=== PATIENT | female | born 1955 | race Two or more races ===

== ENCOUNTER 2018-02-13 20:43 | Inpatient (IN) | payer OTHER ==
[~2018-02-13] VITALS: Ht 162.6 cm; Wt 87.5 kg
[2018-02-13 22:03] LABS: Basophils # (auto) 0 uL; Basophils % (auto) 0.5 % (0.0-2.0); Eosinophils # (auto) 0.1 uL; Eosinophils % (auto) 2.1 % (0.0-7.0); Hematocrit 43.2 % (36.0-46.0); Hemoglobin 14.5 g/dL (12.2-16.2); Lymphocytes # (auto) 1.5 uL; Lymphocytes % (auto) 22.5 % (10.0-50.0); Mean Corpuscular Hemoglobin 30.9 pg (28.0-32.0); Mean Corpuscular Hgb Conc. 33.6 g/dL (32.0-36.0); Monocytes # (auto) 0.8 uL; Monocytes % (auto) 11.2 % (0.0-12.0); Neutrophils # (auto) 4.3 uL; Neutrophils % (auto) 63.7 % (37.0-80.0); Nucleated Red Blood Cells % 0.1 %; Platelet Count (auto) 168 10^3/uL (140-450); Red Cell Distribution Width 13.8 % (11.8-14.3); White Blood Cell 6.7 10^3/uL (4.4-10.8)
[2018-02-13 22:07] LABS: Alanine Aminotransferase 31 U/L (13-56); Albumin 3.5 g/dL (3.4-5.0); Anion Gap 11 (5-15); Aspartate Aminotransferase 22 U/L (15-37); BUN/Creatinine Ratio 21.6; Blood Alcohol < 3.0 mg/dL (0-5); Blood Urea Nitrogen 21 mg/dL (7-18); Calcium 8.5 mg/dL (8.5-10.1); Carbon Dioxide 23 mmol/L (21-32); Chloride 106 mmol/L (98-107); GFR African American 74 mL/min; GFR Non-African American 61 mL/min; Glucose 98 mg/dL (74-106); Potassium 3.6 mmol/L (3.5-5.1); Sodium 140 mmol/L (136-145)
[2018-02-13 22:12] LABS: Alkaline Phosphatase 102 U/L (45-117); Bilirubin, Total 0.4 mg/dL (0.2-1.0); Total Protein 7.2 g/dL (6.4-8.2)
[2018-02-13 23:38] LABS: Alcohol, Urine < 3.0 mg/dL (0-5); Amphetamine Screen, Urine NEGATIVE (NEGATIVE); Barbiturate Scree,Urine NEGATIVE (NEGATIVE); Benzodiazephine Screen, Urine NEGATIVE (NEGATIVE); Cannabinoid Screen, Urine NEGATIVE (NEGATIVE); Cocaine Screen, Urine NEGATIVE (NEGATIVE); Opiate Scree,Urine NEGATIVE (NEGATIVE); Phencyclidine Screen, Urine NEGATIVE (NEGATIVE)
[2018-02-13 23:44] LABS: Urine Bacteria MANY /hpf (None Seen); Urine Blood Negative /uL (Negative); Urine Mucus FEW (None Seen); Urine Specific Gravity 1.015 (1.001-1.035); Urine WBC 29 /hpf (0 - 5)
[2018-02-14] MEDS: SODIUM CHLORIDE 0.9% 1,000 ML IV SCH ×2 (10:07→22:37)
[2018-02-14] MEDS ORDERED: NITROGLYCERIN 0.4 MG SL TAB SL PRN (10:15)
[2018-02-14] MEDS ORDERED: MORPHINE SULFATE 10 MG/ML INJ 1ML SDV IV PRN ×2 (10:15)
[2018-02-14] MEDS ORDERED: LORazepam 0.5 MG TAB PO PRN (10:15)
[2018-02-14] MEDS ORDERED: LACTULOSE 20Gm/30ML SOLN PO PRN (10:15)
[2018-02-14] MEDS ORDERED: TEMAZEPAM 15 MG CAP PO PRN (10:15)
[2018-02-14] MEDS ORDERED: ACETAMINOPHEN 500 MG TAB PO PRN (10:15)
[2018-02-14] MEDS ORDERED: PROMETHAZINE HCL 25 MG/ML 1ML IV PRN (10:15)
[2018-02-14] MEDS ORDERED: LABETALOL HCL 5 MG/ML ML 20ML VIAL IV PRN (10:15)
[2018-02-14] MEDS ORDERED: cefTRIAXone 1GM/50ML D5W 50 ML IV ONE (10:15)
[2018-02-14] MEDS ORDERED: SERT-274 PO (10:34)
[2018-02-14] MEDS ORDERED: FURO20TA PO (10:34)
[2018-02-14] MEDS ORDERED: OMEP20TA PO (10:34)
[2018-02-14] MEDS ORDERED: ACET120S38 PR (10:34)
[2018-02-14] MEDS ORDERED: LOSA-46 PO (10:34)
[2018-02-14] MEDS ORDERED: POTA10TA79 PO (10:34)
[2018-02-14] MEDS ORDERED: SIMV-8 PO (10:34)
[2018-02-14] MEDS ORDERED: ENOXAPARIN SOD 40 MG/0.4 ML SYRINGE SC ONE (10:45)
[2018-02-14 10:53] LABS: INR 0.97 (0.9-1.15); Partial Thromboplastin Time 27.7 sec (23.78-33.04); Prothrombin Time 10.4 sec (9.27-12.13)
[2018-02-14 11:12] LABS: Folate (Folic Acid) > 24.00 ng/mL (5.38-24)
[2018-02-14] MEDS ORDERED: IOHEXOL 350 MG/ML 100ML IJ ONE (14:57)
[2018-02-14 14:58] LABS: Cholesterol 184 mg/dL (< 200)
[2018-02-14 15:00] LABS: HDL Cholesterol 46 mg/dL (40-59); LDL Cholesterol 138 mg/dL (< 100); Triglycerides 132 mg/dL (< 150)
--- NOTE | 2018-02-14 17:50 | NUR ---
Telemetry admit from ER [facility] admitted to Telemetry unit after SBAR received. Patient oriented to Katia Yeh, RN primary RN, unit, room, bed, and unit policies regarding patient care and visiting hours. Patient now on continuous telemetry monitoring, tele box # [id number] and telemetry reading on arrival to unit is SB 44 bpm. Patient placed on bedside oxygen, weighed by bedscale and encouraged to call if they need something. All questions and concerns addressed, patient verbalized understanding.
[2018-02-14] MEDS: HYDROcodone-ACET 5/325MG TAB PO PRN (18:42)
--- NOTE | 2018-02-14 20:00 | NUR ---
Opening Shift Note Assumed care of patient, awake and alert. No S/S of distress/SOB or pain. Instructed on POC and to call for assist PRN, will continue to monitor for changes Q1hr and PRN.
[2018-02-14] MEDS: ATORVASTATIN 20 MG TAB PO SCH (21:28)
[2018-02-14 22:00] VITALS: BP 90/56
[2018-02-15 05:00] VITALS: BP 128/73
[2018-02-15] MEDS: HYDROcodone-ACET 5/325MG TAB PO PRN ×2 (05:43→21:31)
--- NOTE | 2018-02-15 07:30 | NUR ---
Opening Shift Note Assumed care of patient at this time. Patient is awake, alert, and oriented x4. Patient states there is some pain to her left arm at this time. Patient shows no signs or symptoms of shortness of breath or distress. Instructed patient on the plan of care for today and to call for assistance as needed. Bed is locked and lowered in the lowest position with side rails up x2. Call light within reach. Will continue to monitor.
--- NOTE | 2018-02-15 07:30 | NUR ---
Opening Shift Note Assumed care of patient. Patient is awake, alert, and oriented x4. Patient states there is very little pain to her left arm, about 2 on scale of 0-10. Patient shows no signs or symptoms of distress or shortness of breath at this time. Patient instructed on the plan of care and to call for assistance as needed. Bed is locked and lowered with side rails up x2. Call light within reach. Will continue to monitor.
--- NOTE | 2018-02-15 07:37 | NUR ---
Report given to Gay Workman to assume care, patient is resting not in distress.
[2018-02-15 09:00] VITALS: BP 113/67
[2018-02-15] MEDS: ASPirin 81 mg TAB PO SCH (10:00)
[2018-02-15] MEDS: cefTRIAXone 1GM/50ML D5W 50 ML IV SCH (10:01)
[2018-02-15] MEDS: PANTOPRAZOLE 40 MG TAB PO SCH (10:13)
[2018-02-15] MEDS: ENOXAPARIN SOD 40 MG/0.4 ML SYRINGE SC SCH (10:13)
[2018-02-15] MEDS: SODIUM CHLORIDE 0.9% 1,000 ML IV SCH ×2 (11:07→23:37)
[2018-02-15 13:00] VITALS: BP 114/85
--- NOTE | 2018-02-15 13:21 | NUR ---
Re: Procedure Patient away at procedure, MRI, at this time.
--- NOTE | 2018-02-15 13:45 | NUR ---
Re: Patient on unit Patient back on unit.
--- NOTE | 2018-02-15 16:43 | NUR ---
Re: Phone Call Dr. Foster called. Read MRI results to her over the phone. New orders given at this time. Will implement. She is cleared from a neuro standpoint can be followed outpatient.
[2018-02-15] MEDS ORDERED: ASPirin-EC 81 mg tab PO ONE (16:45)
[2018-02-15 17:00] VITALS: BP 126/75
--- NOTE | 2018-02-15 18:28 | NUR ---
Re: Patient refusing meds Patient does not want to take aspirin at this time because she states it upsets her stomach. At bedside with a ms sql developer at this time. Educated patient on the importance of taking her medication. Will continue to monitor.
--- NOTE | 2018-02-15 19:10 | NUR ---
Closing Shift Note Patient is resting in bed at this time. Patient is starting to have some pain, told to call for assistance if she felt she needed something for the pain. Patient shows no signs of distress at this time. Will endorse care to the manager shift RN.
--- NOTE | 2018-02-15 20:00 | NUR ---
ASSUMED CARE, PT. AWAKE, SURINAMESE SPEAK ONLY, NO C/O PAIN, NO SOB.
[2018-02-15] MEDS: ATORVASTATIN 20 MG TAB PO SCH (21:30)
[2018-02-15 22:00] VITALS: BP 108/60
[2018-02-16 05:00] VITALS: BP 116/73
[2018-02-16 06:17] LABS: Basophils # (auto) 0 uL; Basophils % (auto) 0.3 % (0.0-2.0); Eosinophils # (auto) 0.2 uL; Eosinophils % (auto) 4.9 % (0.0-7.0); Hemoglobin 14.5 g/dL (12.2-16.2); Lymphocytes # (auto) 1.2 uL; Lymphocytes % (auto) 24.8 % (10.0-50.0); Mean Corpuscular Hemoglobin 30.8 pg (28.0-32.0); Mean Corpuscular Hgb Conc. 33.6 g/dL (32.0-36.0); Mean Corpuscular Volume 91.5 fL (80.0-100.0); Monocytes # (auto) 0.7 uL; Monocytes % (auto) 13.3 % (0.0-12.0); Neutrophils # (auto) 2.8 uL; Neutrophils % (auto) 56.7 % (37.0-80.0); Platelet Count (auto) 154 10^3/uL (140-450); Red Cell Distribution Width 13.9 % (11.8-14.3); White Blood Cell 4.9 10^3/uL (4.4-10.8)
[2018-02-16 06:25] LABS: Calcium 8.4 mg/dL (8.5-10.1); Potassium 4.4 mmol/L (3.5-5.1)
[2018-02-16 06:27] LABS: BUN/Creatinine Ratio 21.7
[2018-02-16 08:00] VITALS: BP 110/65
[2018-02-16 08:39] VITALS: BP 110/65
[2018-02-16] MEDS: cefTRIAXone 1GM/50ML D5W 50 ML IV SCH (09:46)
[2018-02-16] MEDS: PANTOPRAZOLE 40 MG TAB PO SCH (09:46)
[2018-02-16] MEDS: ENOXAPARIN SOD 40 MG/0.4 ML SYRINGE SC SCH (09:46)
[2018-02-16] MEDS: SODIUM CHLORIDE 0.9% 1,000 ML IV SCH (09:46)
[2018-02-16] MEDS: ASPirin 81 mg TAB PO SCH (09:46)
--- NOTE | 2018-02-16 11:59 | NUR ---
FAMILY FAMILY AT BEDSIDE, ALL QUESTIONS AND CONCERNS ADDRESSED, UPDATED PATIENT AND FAMILY ON POC. WILL CONTINUE TO MONITOR.
[2018-02-16 12:55] VITALS: BP 124/76
[2018-02-16 17:23] VITALS: BP 122/79
--- NOTE | 2018-02-16 18:03 | NUR ---
DR GARCIASH IN TO SEE PATIENT PLAN FOR DISCHARGE TOMORROW IF CLEARED BY DR MANN, DR JAYDEN PRESLEY, AND ELIZAEBTH PRESLEY.
--- NOTE | 2018-02-16 19:50 | NUR ---
OPENING SHIFT NOTE RECEIVED REPORT FROM DAYSHIFT RN. NO S/S OF DISTRESS OR SOB. PT REPORTS PAIN 7/10 ON PAIN SCALE. WILL MEDICATE PER MEDICATION ORDERS. PT A/O X4. UPDATED PT ON POC, VERBALIZED UNDERSTANDING. BED LOCKED IN LOW POSITION, CALL LIGHT WITHIN REACH. WILL CONTINUE TO MONITOR PT Q1HR AND PRN.
[2018-02-16] MEDS: HYDROcodone-ACET 5/325MG TAB PO PRN (20:50)
[2018-02-16] MEDS: ATORVASTATIN 20 MG TAB PO SCH (21:27)
[2018-02-16 22:00] VITALS: BP 117/60
[2018-02-17] MEDS: SODIUM CHLORIDE 0.9% 1,000 ML IV SCH ×2 (04:53→13:07)
[2018-02-17 05:00] VITALS: BP 113/54
[2018-02-17 05:20] LABS: Basophils # (auto) 0 uL; Basophils % (auto) 0.5 % (0.0-2.0); Eosinophils # (auto) 0.3 uL; Eosinophils % (auto) 6.4 % (0.0-7.0); Hematocrit 42.4 % (36.0-46.0); Hemoglobin 14.2 g/dL (12.2-16.2); Lymphocytes % (auto) 20.8 % (10.0-50.0); Mean Corpuscular Hemoglobin 30.8 pg (28.0-32.0); Mean Corpuscular Hgb Conc. 33.5 g/dL (32.0-36.0); Mean Corpuscular Volume 91.7 fL (80.0-100.0); Monocytes # (auto) 0.6 uL; Monocytes % (auto) 11.9 % (0.0-12.0); Neutrophils # (auto) 2.9 uL; Neutrophils % (auto) 60.4 % (37.0-80.0); Nucleated Red Blood Cells % 0.2 %; Platelet Count (auto) 153 10^3/uL (140-450); Red Blood Cells 4.63 10^6/uL (4.0-5.20); Red Cell Distribution Width 14.2 % (11.8-14.3); White Blood Cell 4.8 10^3/uL (4.4-10.8)
[2018-02-17 05:42] LABS: BUN/Creatinine Ratio 20.9; Calcium 8.2 mg/dL (8.5-10.1); Potassium 3.8 mmol/L (3.5-5.1)
--- NOTE | 2018-02-17 06:34 | NUR ---
PAGED HOSPITALIST REGARDING PATIENT HAVING POSITIVE BLOOD CULTURE, GRAM NEGATIVE RODS. AWAITING CALL BACK
--- NOTE | 2018-02-17 06:50 | NUR ---
IV insertion IV access obtained, via clean sterile technique by inserting 22 gauge catheter at R FOREARM after 1 attempt(s). IV secured properly. No trauma to site. Patient tolerated well. IV REMOVAL IV DC'D FROM LEFT AC, CATHETER INTACT, PATIENT TOLERATED WELL.
[2018-02-17 08:00] VITALS: BP 111/70
[2018-02-17 08:31] VITALS: BP 111/70
--- NOTE | 2018-02-17 08:52 | NUR ---
Paged Dr. Browne spoke to [facility] regarding to get discharge approval, awaiting to call back.
--- NOTE | 2018-02-17 08:57 | NUR ---
Spoke to (orthopedic) will come to see patient in about 2 hours.
--- NOTE | 2018-02-17 08:57 | NUR ---
Gerry Allred ( Neurologist ) spoke to [facility] regarding discharge approval, awaiting to call back.
[2018-02-17 09:31] VITALS: BP 111/70
[2018-02-17] MEDS: ASPirin 81 mg TAB PO SCH (09:35)
[2018-02-17] MEDS: PANTOPRAZOLE 40 MG TAB PO SCH (09:35)
[2018-02-17] MEDS: cefTRIAXone 1GM/50ML D5W 50 ML IV SCH (09:35)
[2018-02-17] MEDS: ENOXAPARIN SOD 40 MG/0.4 ML SYRINGE SC SCH (09:35)
--- NOTE | 2018-02-17 11:25 | NUR ---
Dr. Browne called back made aware of HR is being low 39-55 and patient is cleared to go home.
[2018-02-17 12:01] VITALS: BP 116/66
--- NOTE | 2018-02-17 13:57 | NUR ---
NUTRITION ASSESSMENT NOTES Please refer to link notes of nutrition screen form filed under the intervention section of the plan of care for further details. Est. Needs: 1300 kcal to 1750 kcal (15-20 kcal/kgBW), 55 gms to 66 gms pro (1.0-1.2 gms/kgIBW:55 kg ). Will continue to monitor pertinent labs and reassess nutrient need prn Thank you. Addendum: 02/17/18 at [address] Amended: Links added.
--- NOTE | 2018-02-17 14:54 | NUR ---
Dr. Allred (Neurologist) called back stated patient is cleared from neuro perspective.
[2018-02-17] MEDS ORDERED: SERT-274 PO (15:57)
[2018-02-17 17:10] VITALS: BP 122/79
--- NOTE | 2018-02-17 18:11 | NUR ---
Discharge instructions given as ordered. Encourage to follow up with PMD(Follow up with Chalino Posada Orthopedic surgeon in 1-2 weeks [address], [place] [address] Follow up with Kristin Castro Neurologist in 1-2 weeks [address] [place] [address], , Follow up with PCP in 1-[address] Marilou LUCAS [phone] [id number] [place] [address]) as instructed. All questions and concerns addressed. Patient verbalized understanding. Medication reconciliation form completed and copy given to patient. IV removed with catheter intact, pressure dressing applied. Telemetry unit returned to [facility]. Patient taken to vehicle via wheelchair with all personal belongings, accompanied by staff and family member. No distress noted at time of departure.
--- NOTE | 2018-02-18 09:08 | NUR ---
DISCHARGE INSTRUCTIONS FAXED TO [facility].
== END 2018-02-17 18:10 | disposition home or self-care (01) | DRG 689 ==
LOC: EDBD 20:43 → ER 20:49 → OVERFLOW 02-14 10:12 → TELE-WESTW 02-14 17:51
PROVIDERS: ADMIT Internal Medicine; ATTEND Internal Medicine
DX: N39.0 Urinary tract infection, site not specified (principal); G93.41 Metabolic encephalopathy; G81.91 Hemiplegia, unspecified affecting right dominant side; M54.12 Radiculopathy, cervical region; I10 Essential (primary) hypertension; F32.9 Major depressive disorder, single episode, unspecified; E66.9 Obesity, unspecified; E78.5 Hyperlipidemia, unspecified; R00.1 Bradycardia, unspecified; E11.9 Type 2 diabetes mellitus without complications; M25.512 Pain in left shoulder; Z82.49 Family history of ischemic heart disease and other diseases of the circulatory system; Z68.33 Body mass index [BMI] 33.0-33.9, adult
CPT/HCPCS: 36415; 70450; 70496; 70498; 70551; 70553; 71045; 72141; 80048; 80053; 80061; 80307; 80320; 81001; 82550; 82607; 82746; 83036; 83735; 84443; 84484; 85025; 85610; 85652; 85730; 87040; 87086; 93306; 93886; 96365; 96366; 96372; G0378; J0696